=== PATIENT | male | born 1985 | race Hispanic/Latino ===

== ENCOUNTER 2018-08-24 15:42 | Observation (INO) ==
[2018-08-24] MEDS ORDERED: ASPIRIN 81 MG TAB.CHEW ONE (16:09)
[2018-08-24] MEDS ORDERED: ASPIRIN 81 MG TAB.CHEW PO ONE ×2 (16:15→16:16)
--- NOTE | 2018-08-24 16:22 | ERNOTE ---
Medical Problem HPI - Narrative Date of Service: 08/24/18 - General Chief Complaint: General Assessment Time Seen by Provider: 08/24/18 16:14 Source: patient Exam Limitations: no limitations - Immun/Allergies/Home Medications Immunizations: IMMUNIZATION HX Immunizations Up to Date No History of Influenza Vaccine Yes Hx Pneumococcal Vaccination More Information Required Allergies/Adverse Reactions: Allergies No Known Allergies Allergy (Verified 03/17/18 12:15) Home Medications: HOME MEDICATIONS Fluticasone/Vilanterol [Breo Ellipta 100-25 Mcg INH] 1 inh INH DAILY 08/24/18 [Last Taken Unknown] - History of Present History Narrative: 32 yr old male with history of RBBB and sleep apnea presents with 5 hr history of mid sternal chest pain. Began while carrying luggage downstairs. At onset rated pain 6-7/10. Presently rates pain 6/10. Denies any radiation of pain. Pain is worse taking a deep breath and with palpation. Reports mild SOB. Denies any N/V. Denies sweating of dizziness. No history of cardiac disease. Had prior EKG in 02/2018 - RBBB. Smokes occasional cigar. Date (Duration): 08/24/18 Time (Timing): 16:15 Timing: constant Severity: moderate Review of Systems - Review of Systems Constitutional: Absent: recent illness EYE: Present: no symptoms reported ENT: Present: no symptoms reported Respiratory: Present: shortness of breath. Absent: cough Cardiology: Present: chest pain. Absent: syncope, edema Gastrointestinal/Abdominal: Absent: nausea, vomiting Genitourinary: Present: no symptoms reported Musculoskeletal: Present: no symptoms reported Skin: Present: no symptoms reported Neurological: Present: no symptoms reported Endocrine: Present: no symptoms reported Hematologic/Lymphatic: Present: no symptoms reported Psych: Present: no symptoms reported Medical History (Updated 02/25/18 @ 10:10 by Sahara Garcia RN) Right bundle branch block (Chronic) Onset Date: Unknown Sinusitis (Chronic) Onset Date: Unknown Sleep apnea (Chronic) Onset Date: Unknown uses cpap machine Surgical History: Surgical History (Updated 03/17/18 @ 12:16 by Vivi Snowden RN) No pertinent past surgical history Onset Date: ~03/17/18 Family History: Family History (Updated 02/25/18 @ 10:20 by Sahara Radha, RN) Father Hyperlipemia Diabetes Aunt Diabetes Uncle Diabetes Mother Glaucoma Grandfather Myocardial infarction Social History: Preferred Language Bahraini Do you have any orthodox or No cultural preference? Smoking Status Former smoker Alcohol Use occasionally Drug Use none (Last Updated 03/18/18 @ 14:27 by MAYELA Prado) No Social History Section defined Physical Exam - Physical Exam General Appearance: Present: wd/wn, alert, no apparent distress Head Exam: Present: normal inspection, no evidence of injury Ears, Nose, Throat: Present: normal ENT inspection, normal pharynx Neck: Present: normal inspection Respiratory: Present: no respiratory distress, normal breath sounds, no accessory muscle use, lungs clear, chest tenderness - Tender to palpation over the mid sternal region Cardiovascular/Chest: Present: regular rate, rhythm, no murmur, normal peripheral pulses Gastrointestinal/Abdominal: Present: normal bowel sounds, nontender, nondistended, soft - obese Extremity Exam: Present: normal inspection, non-tender, no edema Neurological Exam: Present: alert, oriented, normal mood/affect, no motor/sensory deficits Skin Exam: Present: normal color, warm/dry Progress - Results and Orders Patient's Lab Results:: I have reviewed the patient's lab results. - CBC - WBC 6.4, Hgb 14.7, Hct 43.6, Plt 187 CMP - Sodium 142, Potassium 3.6, BUN 18, Cr 1.02, Glucose 113, AST 36, ALT 101, Alk phos 93, INR 1.0, D-dimer 0.24, BNP - 24, Troponin < 0.017 Lipid panel: Triglyceride ^ 536, Chol 139, LDL 107, HDL 20, Chol/HDL ^ 6.9 - Vital Signs Patient's Vital Signs:: I have reviewed the patient's vital signs. Vital Signs: Vital Signs 08/24/18 15:50 Temperature 37 C Pulse Rate 81 Respiratory Rate 16 Blood Pressure 153/92 H O2 Sat by Pulse Oximetry 98 - EKG EKG #1 EKG: other EKG read: Reviewed by me - SR rate 91 Old RBBB No significante change when compared to prior EKG 02/25/19 EKG #2 EKG: other EKG read: Reviewed by me EKG Comments: SR with RBBB rate 88 no acute changes in compared to prior. - X-Ray X-Ray #1 X-Ray: chest Interpretation: Reviewed by me - No acute pathology noted - Progress/Reassessment Chief Complaint: General Assessment Progress:: Improved Progress Note-Subjective: 08/24/18 16:33 Arterial risk factors: Smokes occasional cigar, no increased risk for age, non-diabetic, no diagnosis of elevated cholesterol or hypertension. No cardiac history with parents. Grand father - [facility] [place] Patient's BMI is ^ 42.8 08/24/18 16:38 CP after one Nitroglycerin 6/10 to 4/10 After second Nitro feels he can take deep breath much better and pain less. Chest pressure completely resolved during ER stay. Spoke with Dr. Browne who graciously accepted his care for admission. Discussed Observation admission with patient and his . Reviewed serial enzymes and EKG's 08/24/18 16:42 08/24/18 17:05 08/24/18 17:12 08/24/18 17:54 Plan - Plan Plan: Admit for Observation Departure Clinical Impression: High triglycerides - Departure Disposition: Still a patient Condition: Good Referrals: Mirna Hardin DO [Primary Care Provider] -
[2018-08-24 16:28] LABS: Hematocrit 43.6 % (42.0-52.0); Hemoglobin 14.7 gm/dL (13.5-18.0); Mean Cell Volume 82.9 fl (78-100); Mean Corpuscular Hemoglobin 27.9 pg (27-31); Mean Corpuscular Hgb Conc 33.7 g/dl (32-36); Mean Platelet Volume 10.1 fl (8-11.3); Neutrophil # 4.2 K/mm3 (1.3-6.0); Neutrophil % 66.5 % (42-75.0); Platelet Count 187 K/mm3 (150-450); Red Blood Count 5.26 M/mm3 (4.7-6.0); Red Cell Distribution Width 12.9 % (11.5-14.0); White Blood Count 6.4 K/mm3 (4.0-10.5)
[2018-08-24] MEDS: NITROGLYCERIN 0.4 MG/TAB BTL SL PRN ×2 (16:33→16:38)
[2018-08-24 16:40] LABS: Prothrombin Time (Patient) 9.9 Seconds (9.1-10.7)
[2018-08-24 16:49] LABS: ALT 101 U/L (19-67); AST 36 U/L (0-48); Alkaline Phosphatase * 93 U/L (50-170); Anion Gap 14.9 mmol/L (6.8-13.8); BNP * 14 pg/mL (5-140); BUN/Creatinine Ratio 17.6 (9.0-21.6); Bilirubin, Total 0.4 mg/dL (0.0-1.1); Blood Urea Nitrogen 18 mg/dL (6-23); Ca. Corrected For Albumin 8.8 mg/dL (8.4-10.2); Calcium * 9.1 mg/dL (7.9-10.9); Carbon Dioxide 25.7 mmol/L (24-32.6); Chloride 105 mmol/L (97-106); Glucose * 113 mg/dL (70-110); Potassium 3.6 mmol/L (3.4-4.6); Sodium 142 mmol/L (132-142); Total Protein 7.6 gm/dL (6.2-8.2)
[2018-08-24 16:50] LABS: Troponin I Less than 0.017 ng/mL (0.00-0.10)
[2018-08-24 17:16] LABS: Chol/HDL Risk Ratio 6.9 mg/dL (3.3-5.0)
--- NOTE | 2018-08-24 19:56 | HP ---
Chief Complaint - Chief Complaint Date of Service: 08/24/18 Time of Service: 19:54 Chief Complaint: chest pain History of Present Illness: Hema Gtz is a 32-year-old male with past medical history of obstructive sleep apnea, right bundle branch block, obesity, who was admitted on 08/24/2018 because of chest pain. The patient was carrying some luggages down to the basement when he started having chest pain, substernal, pressure like, 7/10, nonradiating, associated with some shortness of breath, not associated with diaphoresis, nausea, dizziness. He said that one year ago he was diagnosed with right bundle branch block on his EKG when he was seen in the emergency room for shortness of breath. He has been having on and off chest pain since 1 year ago usually associated with physical activity, relieved by rest. He saw a cardiol ogist a few months back and echocardiogram was done in [facility] and he was told that his echocardiogram was normal. He denies any hypertension, diabetes, hyperlipidemia. He has an uncle who had a heart attack in his early 50s. 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 His EKG showed NSR with RBBB with ST-T wave changes not significantly changed from his EKG in 2018. His first set of troponin was less than 0.017. His TG is high with low LDL and HDL. RBS was 113. Medical History (Updated 08/24/18 @ 20:44 by Augusto Scott MD) Right bundle branch block (Chronic) Onset Date: Unknown Sinusitis (Chronic) Onset Date: Unknown Sleep apnea (Chronic) Onset Date: Unknown uses cpap machine Asthma Surgical History: Surgical History (Updated 08/24/18 @ 19:55 by Augusto Scott MD) No pertinent past surgical history Onset Date: ~03/17/18 Family History: Family History (Updated 02/25/18 @ 10:20 by Sahara Garcia RN) Father Diabetes Hyperlipemia Aunt Diabetes Uncle Diabetes Mother Glaucoma Grandfather Myocardial infarction Social History: Patient Lives/Resources With Spouse Utilized 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 Smoking Status Former smoker Have you smoked in the past 12 No months Alcohol Use occasionally Drug Use none (Last Updated 03/18/18 @ 14:27 by MAYELA Prado) No Social History Section defined Review Of Systems (GEN) - Review of Systems Generalized/Overall Review: Absent: Chills EENTM: Absent: Blurred Vision Respiratory: Present: Shortness of Breath. Absent: Cough, Orthopnea, Wheezing Cardiac: Present: Chest Pain. Absent: Edema, Palpitations Abdominal: Absent: Nausea, Vomiting, Abdominal Pain, Constipation, Diarrhea Genitourinary: Absent: Urgency, Frequency Musculoskeletal: Absent: Joint Pain, Back Pain Neurological: Absent: Headache, Anxiety, Depressed Skin: Absent: Lesions, Rash Endocrine: Absent: Intolerance to Cold, Intolerance to Heat Misc: All systems neg except as marked Immunizations: IMMUNIZATION HX Immunizations Up to Date No History of Influenza Vaccine Yes Hx Pneumococcal Vaccination More Information Required Allergies/Adverse Reactions: Allergies Allergy/AdvReac Type Severity Reaction Status Date / Time No Known Allergies Allergy Verified 08/24/18 18:38 Home Medications: HOME MEDICATIONS Fluticasone/Vilanterol [Breo Ellipta 100-25 Mcg INH] 1 inh INH DAILY 08/24/18 [Last Taken Unknown] Exam - Exam Vital Signs: Vital Signs - Last Taken Temp 37 C 08/24/18 18:39 Pulse 93 08/24/18 18:39 Resp 20 08/24/18 18:39 BP 133/81 08/24/18 18:39 Pulse Ox 96 08/24/18 18:39 Constitutional: Present: Alert, Oriented x3, Cooperative, Morbidly obese ENT Exam: Present: hearing grossly normal Eye Exam: bilateral eye: normal inspection, PERRL, EOMI Neck: Present: supple Respiratory: Present: normal breath sounds, No rales, No wheezing Cardiovascular/Chest: Present: regular rate, rhythm, no JVD, no murmur Abdomen: Present: Normal bowel sounds, soft, nontender, obese Extremity: Present: no pedal edema, no calf tenderness Diagnostic Studies: Abnormal Lab Results 08/24/18 08/24/18 08/24/18 Range/Units 16:19 16:19 16:19 Immature Gran % (Auto) 1.10 H (0.001-0.429) % Immature Gran # (Auto) 0.07 H (0.000-0.0310) K/mm3 Lymphocytes % 18.8 L (20-51) % Monocytes % 11.3 H (0.0-9) % Lymphocytes # 1.20 L (1.5-3.5) k/mm3 Anion Gap 14.9 H (6.8-13.8) mmol/L Random Glucose 113 H (70-110) mg/dL ALT 101 H (19-67) U/L Triglycerides 536 H (30-200) mg/dL LDL Cholesterol 12 L (70-130) mg/dL VLDL Cholesterol 107 H (5-40) mg/dL HDL Cholesterol 20 L (40-60) mg/dL Cholesterol/HDL Ratio 6.9 H (3.3-5.0) mg/dL Laboratory Results WBC 6.4 K/mm3 (4.0-10.5) 08/24/18 16:19 RBC 5.26 M/mm3 (4.7-6.0) 08/24/18 16:19 Hgb 14.7 gm/dL (13.5-18.0) 08/24/18 16:19 Hct 43.6 % (42.0-52.0) 08/24/18 16:19 MCV 82.9 fl (78-100) 08/24/18 16:19 MCH 27.9 pg (27-31) 08/24/18 16:19 MCHC 33.7 g/dl (32-36) 08/24/18 16:19 RDW 12.9 % (11.5-14.0) 08/24/18 16:19 Plt Count 187 K/mm3 (150-450) 08/24/18 16:19 MPV 10.1 fl (8-11.3) 08/24/18 16:19 Immature Gran % (Auto) 1.10 % (0.001-0.429) H 08/24/18 16:19 Immature Gran # (Auto) 0.07 K/mm3 (0.000-0.0310) H 08/24/18 16:19 66.5 % (42-75.0) 08/24/18 16:19 18.8 % (20-51) L 08/24/18 16:19 11.3 % (0.0-9) H 08/24/18 16:19 2.0 % (0.0-3.0) 08/24/18 16:19 0.3 % (0.0-1.0) 08/24/18 16:19 Nucleated RBC % 0.0 k/mm3 (0-1) 08/24/18 16:19 4.2 K/mm3 (1.3-6.0) 08/24/18 16:19 1.20 k/mm3 (1.5-3.5) L 08/24/18 16:19 0.7 k/mm3 (0.0-1.0) 08/24/18 16:19 0.1 k/mm3 (0.0-0.7) 08/24/18 16:19 Absolute Basophils 0.0 k/mm3 (0.0-0.1) 08/24/18 16:19 PT 9.9 Seconds (9.1-10.7) 08/24/18 16:19 INR (Anticoag Therapy) 1.00 INR (0.92-1.08) 08/24/18 16:19 PTT (Som) 24.0 Seconds (24-32) 08/24/18 16:19 0.24 ug/mL (0.19-0.49) 08/24/18 16:19 Sodium 142 mmol/L (132-142) 08/24/18 16:19 142 mmol/L (130-142) 08/24/18 16:19 Potassium 3.6 mmol/L (3.4-4.6) 08/24/18 16:19 Chloride 105 mmol/L (97-106) 08/24/18 16:19 Carbon Dioxide 25.7 mmol/L (24-32.6) 08/24/18 16:19 14.9 mmol/L (6.8-13.8) H 08/24/18 16:19 BUN 18 mg/dL (6-23) 08/24/18 16:19 1.02 mg/dL (0.4-1.4) 08/24/18 16:19 Est GFR (Non-Af Amer) 89 mL/min (60-130) 08/24/18 16:19 17.6 (9.0-21.6) 08/24/18 16:19 113 mg/dL (70-110) H 08/24/18 16:19 Calcium 9.1 mg/dL (7.9-10.9) 08/24/18 16:19 Calcium Adj for Albumin 8.8 mg/dL (8.4-10.2) 08/24/18 16:19 0.4 mg/dL (0.0-1.1) 08/24/18 16:19 AST 36 U/L (0-48) 08/24/18 16:19 ALT 101 U/L (19-67) H 08/24/18 16:19 93 U/L (50-170) 08/24/18 16:19 Less than 0.017 ng/mL (0.00-0.10) 08/24/18 16:19 B-Natriuretic Peptide 14 pg/mL (5-140) 08/24/18 16:19 7.6 gm/dL (6.2-8.2) 08/24/18 16:19 4.0 gm/dl (3.4-5.0) 08/24/18 16:19 Triglycerides 536 mg/dL (30-200) H 08/24/18 16:19 Cholesterol 139 mg/dL (0-200) 08/24/18 16:19 12 mg/dL (70-130) L 08/24/18 16:19 107 mg/dL (5-40) H 08/24/18 16:19 20 mg/dL (40-60) L 08/24/18 16:19 6.9 mg/dL (3.3-5.0) H 08/24/18 16:19 Assessment/Plan - Assessment/Plan (1) Chest pain Assessment: r/o ACS. will continue with serial EKG and troponin determination. alex schedule him a nuclear threadmill stress test in the morning. Problem: Acute Qualifiers: Chest pain type: precordial pain Qualified Code(s): R07.2 - Precordial pain (2) Right bundle branch block Problem: Chronic (3) Morbid obesity Problem: Acute (4) High triglycerides Assessment: i will defer management of his TG to her PCP. he was told to do lifestyle modifications. Problem: Acute (5) Sleep apnea Problem: Chronic
[2018-08-25] MEDS ORDERED: FLUTICASONE PROPION/SALMETEROL 14 PUFF DISK.W.DEV IH SCH (09:00)
[2018-08-25] MEDS ORDERED: Regadenoson 0.1 MG UNIT IV ONE (12:00)
[2018-08-25] MEDS ORDERED: Regadenoson 0.08 MG/ML SYRG IV ONE (12:00)
[2018-08-25] MEDS ORDERED: ASPIRIN 81 MG TAB.CHEW PO SCH (15:00)
[2018-08-25] MEDS ORDERED: METOPROLOL SUCCINATE 25 MG TABLET.SA PO SCH (15:00)
--- NOTE | 2018-08-25 15:25 | DS ---
Description of Stay: Patient with PMHx of right bundle branch block presented to the ER after several hours of midsternal chest pain that started while he was moving things around the house. He reports having some intermittent chest pain over the last year. His chest pain improved after 2 nitro in the ED. No change in EKG from previous, still showing his right bundle branch block. Troponins were negative. He was admitted for serial EKGs and troponins. His triglycerides were elevated at 536. He was able to get a pharmacologic stress test on the day of discharge, with nuclear imaging. It showed a potential ischemia of the anterior wall of the left ventricular myocardium. On-call stretcher and drier at [facility] was called to discuss the findings, who recommended he see his stretcher and drier after discharge, but transfer not needed. He was started on fenofibrate for his triglycerides, including metoprolol and baby aspirin, and he will be given a prescription for nitro to use as needed. Procedures Performed: see notes below - pharmacologic stress test with nuclear imaging Results and Findings: Lab Pending Results 08/24/18 16:19: WBC 6.4, RBC 5.26, Hgb 14.7, Hct 43.6, MCV 82.9, MCH 27.9, MCHC 33.7, RDW 12.9, Plt Count 187, MPV 10.1, Immature Gran % (Auto) 1.10 H, Immature Gran # (Auto) 0.07 H, Neutrophils % 66.5, Lymphocytes % 18.8 L, Monocytes % 11.3 H, Eosinophils % 2.0, Basophils % 0.3, Nucleated RBC % 0.0, Neutrophils # 4.2, Lymphocytes # 1.20 L, Monocytes # 0.7, Eosinophils # 0.1, Absolute Basophils 0.0 08/24/18 16:19: PT 9.9, INR (Anticoag Therapy) 1.00, PTT (Som) 24.0 08/24/18 16:19: Sodium 142, Plasma Sodium 142, Potassium 3.6, Chloride 105, Carbon Dioxide 25.7, Anion Gap 14.9 H, BUN 18, Creatinine 1.02, Est GFR (Non-Af Amer) 89, BUN/Creatinine Ratio 17.6, Random Glucose 113 H, Calcium 9.1, Calcium Adj for Albumin 8.8, Total Bilirubin 0.4, AST 36, ALT 101 H, Alkaline Phosphatase 93, Troponin I Less than 0.017, B-Natriuretic Peptide 14, Total Protein 7.6, Albumin 4.0 08/24/18 16:19: D-Dimer 0.24 08/24/18 16:19: Triglycerides 536 H, Cholesterol 139, LDL Cholesterol 12 L, VLDL Cholesterol 107 H, HDL Cholesterol 20 L, Cholesterol/HDL Ratio 6.9 H 08/24/18 22:05: Troponin I Less than 0.017 Discharge Location: Home Disposition: Home self-care Condition: Good Discharge Activity: Activity as tolerated Discharge Diet: Low fat/chol Referrals: Mirna Hardin DO [Primary Care Provider] - Two Weeks Problem Oriented Discharge Instructions to Patient/Family: Angina Pectoris, [id number] Additional Patient Instructions (free text): Please schedule with cardiology this week. If unable to see his stretcher and drier, Dr. Raines, please schedule with another stretcher and drier. Complete Home Medications List: Complete Home Medication List: Fluticasone/Vilanterol [Breo Ellipta 100-25 Mcg INH] 1 inh INH DAILY 08/24/18 Aspirin [Aspirin Chewable] 81 mg PO DAILY #90 tab.chew 08/25/18 Fenofibrate,Micronized [Lofibra] 134 mg PO DAILY #90 capsule 08/25/18 Metoprolol Succinate [Toprol Xl] 25 mg PO DAILY #90 tablet.sa 08/25/18 Nitroglycerin [Nitrostat] 0.4 mg SL Q5MIN PRN #10 tab 08/25/18
[2018-08-25 16:18] VITALS: BP 141/76
[2018-08-26] MEDS ORDERED: FENOFIBRATE,MICRONIZED 134 MG CAPSULE PO SCH (09:00)
== END 2018-08-25 16:22 | disposition home or self-care (01) ==
LOC: MS 15:42 → ER 15:42 → MS 18:28
PROVIDERS: ADMIT Internal Medicine; ATTEND Family Medicine
DX: E78.1 Pure hyperglyceridemia; I45.10 Unspecified right bundle-branch block; E66.01 Morbid (severe) obesity due to excess calories; R07.9 Chest pain, unspecified
CPT/HCPCS: 36415; 71020; 71046; 78452; 80053; 80061; 83519; 83880; 84484; 85025; 85379; 85610; 85730; 93005; 93017; 94660; 99285; A9502; G0378; J2785